=== PATIENT | female | born 2005 | race Caucasian/White ===

== ENCOUNTER 2025-05-06 18:15 | Emergency (ER) | payer OTHER, SELFPAY ==
--- NOTE | ~2025-05-06 | XR_ITS ---
XR abdomen/kub 1V 05/06/2025 18:44 INDICATION: Constipation TECHNIQUE: KUB COMPARISON: None FINDINGS: Bowel gas pattern is normal. There is no evidence of free air, mass, organomegaly, ascites or obstruction. No abnormal calculi are seen. The bones appear intact. IMPRESSION: 1: No acute abdominal abnormality identified. Reviewed, dictated and finalized at location A.
--- NOTE | 2025-05-06 18:17 | ED_ITS ---
HPI - Abdominal Pain General Chief Complaint: Abdominal Pain Stated Complaint: Stomach Pain Time Seen by Provider: 05/06/25 18:17 Source: patient Mode of arrival: ambulatory Limitations: no limitations History of Present Illness HPI narrative: Maritza is a 20-year-old female patient presenting to the clinic today with complaints of sharp mid abdominal pain x1 day. States the pain comes and goes She reports over the last week she has had diarrhea off and on. Last bowel movement was today and soft. Denies any fevers, chills, or body aches. Denies any urinary symptoms. Last menstrual period was half a week ago. Denies any concern for STIs. Denies any vaginal discharge. Rates pain 04/28 currently Related Data Home Medications ?Medication ?Instructions ?Recorded ?Confirmed ?Last Taken ?Type buspirone 10 mg tablet mg 05/06/25 Unknown History hydroxyzine HCl 25 mg tablet mg 05/06/25 Unknown History sertraline 100 mg tablet mg 05/06/25 Unknown History trazodone 50 mg tablet mg 05/06/25 Unknown History Review of Systems Review of Systems: Pertinent positives per HPI. Patient denies any fever, chills, rash, headache, visual changes, dizziness, cough, runny nose, sore throat, shortness of breath, chest pain, palpitations, nausea, vomiting, constipation, or any urinary issues. PMFSH Comments At the time of my signature, I reviewed and agree with the nursing past medical, surgical, social, and family history. There is no relevant family history pertinent to the patient complaint. Exam Narrative: General: Well-developed, well nourished, in no apparent distress. Head: Normocephalic, atraumatic. Cardio: Regular rate and rhythm, s1 and s2 normal, no murmur appreciated. Resp: Clear to auscultation bilaterally, no rhonchi, rales, wheezing or rubs. Abdomen: Soft, pliable, bowel sounds present in all quadrants, right upper quadrant, right lower quadrant, and mid abdominal tender to palpation, no organomegly, no CVAT tenderness. Course Course Emergency Course: Portions of this record may have been created with voice recognition software. Level of Care: Express Care Visit Vital Signs Vital signs: Vital Signs Temperature 37.1 C 05/06/25 18:25 Pulse Rate 101 H 05/06/25 18:25 Respiratory Rate 16 05/06/25 18:25 Blood Pressure 124/76 05/06/25 18:25 Pulse Oximetry 100 05/06/25 18:25 Oxygen Delivery Room Air 05/06/25 18:25 Temperature 37.1 C 05/06/25 18:25 Pulse Rate 101 H 05/06/25 18:25 Respiratory Rate 16 05/06/25 18:25 Blood Pressure 124/76 05/06/25 18:25 Pulse Oximetry 100 05/06/25 18:25 Oxygen Delivery Room Air 05/06/25 18:25 Vital signs reviewed MDM - Abdominal Pain MDM Narrative Medical decision making narrative: At the time of visit patient is resting comfortably on the exam table. Patient appears to be nontoxic. Complaints of sharp mid abdominal pain x1 day. States the pain comes and goes. She reports over the last week she has had diarrhea off and on. Last bowel movement was today and soft. Denies any fevers, chills, or body aches. Denies any urinary symptoms. Last menstrual period was half a week ago. Denies any concern for STIs. Denies any vaginal discharge. Rates pain 8/10 currently. Urinalysis and KUB x-ray was ordered. Labs: Urinalysis negative for any sign of infection or blood. Bedside pr egnancy test was negative. Diagnostics: KUB x-ray was performed and was negative for any acute abdomen pathology. Plan: I suspect patient has generalized abdominal pain mainly in the right lower quadrant, right upper quadrant, and mid abdomen. Offer to send patient to the ER for further evaluation but patient declined at this time and would like to go home Supportive measures were discussed with the patient and they voiced understanding discharge instructions and agrees to treatment plan. Return precautions reviewed Differential Diagnosis Differential diagnosis: Likely abdominal pain, acute appendicitis, calculus of kidney, constipation, diverticulitis, endometriosis, gastroenteritis, pancreatitis and small bowel obstruction Lab Data Labs: Lab Results 05/06/25 05/06/25 Range/Units 18:30 19:21 POC Urine Color Yellow POC Urine Clarity Clear POC Urine pH 5.5 POC Ur Specif [place] 1.030 POC Urine Protein Negative (Negative) POC Ur Glucose (UA) Negative (Negative) POC Urine Ketones Negative (Negative) POC Urine Blood Negative (Negative) POC Urine Nitrite Negative (Negative) POC Urine Bilirubin Negative (Negative) POC Urine Urobilinogen 0.2 POC U Leukocyte Esteras Negative (Negative) POC Urine HCG, Qual Negative (Negative) Imaging Data Radiologist's impression: ITS Impressions Abdomen X-Ray 05/06/25 18:50 IMPRESSION: 1: No acute abdominal abnormality identified. Discharge Plan Discharge Clinical Impression: Abdominal pain Qualifiers: Abdominal location: generalized Qualified Code(s): R10.84 - Generalized abdominal pain Patient Disposition: Home Condition: Stable Instructions: Antibiotic Form, Abdominal Pain (ED) Additional Instructions: KUB x-ray shows normal bowel gas pattern with no acute abdomen abnormality Urinalysis is negative for any signs of infection or blood. Bedside test was negative. Offer to send you to the ER for further evaluation and you declined at this time. Increase fluids and stay well hydrated May take Imodium as needed for diarrhea as long as there is no blood in your stool May take Tylenol/Motrin as needed for pain or fever as per bottle directions Follow-up with your PCP in 3-5 days if symptoms persist Go to the emergency room if symptoms worsen controlled by Tylenol or Motrin, increase in abdominal pain, chest pain, shortness of breath, weakness, lethargy, or confusion. Patient Language: Latvian Prescriptions: No Action trazodone 50 mg tablet sertraline 100 mg tablet buspirone 10 mg tablet hydroxyzine HCl 25 mg tablet Follow-up/Referrals: UNKNOWN,DOCTOR [Non-Staff] - Time of Disposition: 19:18 Quality NIHSS Nursing Documentation ED NIHSS nursing documentation: reviewed/agree
[2025-05-06 18:25] VITALS: BP 124/76; PULSE 101; RESP 16; TEMP 37.1; O2SAT 100
[2025-05-06 18:51] LABS: EDUAAPPEAR Clear; EDUABILI Negative (Negative); EDUABLOOD Negative (Negative); EDUACOLOR1 Yellow; EDUAGLUCOSE Negative (Negative); EDUAKETONE Negative (Negative); EDUALEUKO Negative (Negative); EDUANITRATE Negative (Negative); EDUAPH 5.5; EDUAPROTEIN Negative (Negative); EDUASPGRAVITY 1.030; EDUAUROBILI 0.2
[2025-05-06 19:23] LABS: BEDSIDEPREGUCG Negative (Negative)
== END 2025-05-06 19:20 | disposition home or self-care (01) ==
PROVIDERS: Emergency Provider Nurse Practitioner Family
DX: R10.84 Generalized abdominal pain (principal)
CPT/HCPCS: 74018; 81003; 81025; 99203; G0463